=== PATIENT | female | born 2000 | race Caucasian/White ===

== ENCOUNTER 2024-09-21 06:34 | Emergency (ER) | payer OTHER, SELFPAY ==
[2024-09-21 06:45] VITALS: BP 172/109; PULSE 106; RESP 16; TEMP 37.1; O2SAT 98; BMI 34.0
--- NOTE | 2024-09-21 07:16 | ED_ITS ---
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 Patient presents with complaint of left hip pain radiating down towards her knee. Started last night while seated on the couch, no recollection of trauma. She states both the knee and hip part with movement. They noticed a little bit of swelling at the knee and possibly little bit at her hip. Patient does note that worse with weight-bearing. No fevers, no cold cough or congestion, no chest pain or shortness of breath, no some nausea this morning but patient states she started develop a little bit of a migraine headache. No abdominal pain. No issues with bowel movements or urination. She does note little bit of tingling in her left lower extremity which is atypical. States bilateral hip replacements in the past as well as surgery on both shoulders in the past. These were at [facility] with Orthopedic surgery there. No known drug allergies. No tobacco, occasional alcohol, no recreational drugs. Primary care physician is in [place] with Randell Glass. Patient does note she recently had an IUD placed which is hormonal. Related Data Home Medications Medication Instructions Recorded Confirmed celecoxib 200 mg capsule 200 mg PO BID 09/21/24 09/21/24 desmopressin 10 mcg/spray (0.1 mL) 1 spray intranasal Q6-8H 09/21/24 09/21/24 nasal spray (non-refrigerated) estradiol 1 mg tablet 1 mg PO DAILY 09/21/24 09/21/24 hydrocortisone 10 mg tablet See Rx Instructions .Route .COMPLEX 09/21/24 09/21/24 levothyroxine 75 mcg tablet 75 mcg PO DAILY 09/21/24 09/21/24 ondansetron 4 mg disintegrating 4 - 8 mg PO Q8H PRN nausea/vomiting 09/21/24 09/21/24 tablet syringe with needle 3 mL 21 gauge 09/21/24 09/21/24 x 1 1/2 (BD Luer-Perry Syringe) Previous Rx's Medication Instructions Recorded tramadol 50 mg tablet 50 mg PO Q6H PRN pain #10 tabs 09/21/24 Allergies Allergy/AdvReac Type Severity Reaction Status Date / Time No Known Drug Allergies Allergy Verified 09/21/24 06:41 Review of Systems Review of Systems ROS Unobtainable: All systems reviewed & are unremarkable except as noted in HPI and below Patient History Social History Smoking Status: Never smoker Smoking Status: Never smoker alcohol intake frequency: holidays/special occasions only Substance Use Type: does not use Exam Narrative Exam Narrative: GEN: well nourished, well appearing female, alert and oriented x 3, patient appears to be in mild distress. HEENT: Atraumatic, pupils are equal round reactive to light, extraocular movements are intact, nares are clear, there is no conjunctival pallor. Throat is clear without any exudates, erythema, tonsillar enlargement or uvular deviation HEART: Regular rate and rhythm without murmur, clicks, rubs. LUNGS:Lungs clear to auscultation, no wheezes, rales, crackles, chest moves symmetrically ABD:bowel sounds normal, soft, non-tender, no guarding, rebound, rigidity, no masses noted, no hepatosplenomegaly :No CVA tenderness MSCL: Non-tender to palpation of the hip or knee. Nontender with palpation through the thigh. No obvious erythema or warmth. Patient does have discomfort with movement with flexion of the hip and knee. But is able to flex and extend., no muscle atrophy, muscles strength 5/5 upper and lower extremities, full range of motion. NEURO:CN 2-12 intact, sensation normal, SKIN: Patient has some areas circled for swelling and erythema I do not noticed significant warmth or erythema. Left leg is slightly more swollen in comparison to the right. No significant localized area of increased pain with palpation. Initial Vital Signs Initial Vital Signs: Vital Signs Temperature 98.7 F 09/21/24 06:45 Pulse Rate 106 H 09/21/24 06:45 Respiratory Rate 16 09/21/24 06:45 Blood Pressure 172/109 H 09/21/24 06:45 Pulse Oximetry 98 09/21/24 06:45 Oxygen Delivery Method Room Air 09/21/24 06:45 Course Orders Ordered: Discontinued Medications Ketorolac Tromethamine (Ketorolac 30 Mg/Ml Vial) 15 mg IV NOW ONE Stop: 09/21/24 08:23 Last Admin: 09/21/24 08:57 Dose: 15 mg Documented By: [facility] Vital Signs Vital signs: Vital Signs - 8 hr 09/21/24 06:45 09/21/24 10:47 Temperature 98.7 F Pulse Rate 106 H 90 Respiratory Rate 16 20 Blood Pressure 172/109 H 143/94 H Pulse Oximetry 98 98 Oxygen Delivery Method Room Air Room Air MDM - Extremity (Nontraumatic) Lab Data 09/21/24 08:43 09/21/24 08:43 Labs: Lab Results 09/21/24 Range/Units 08:43 WBC 7.2 (4.5-11.0) X10^3/uL RBC 4.25 (4.0-5.2) X10^6/uL Hgb 12.8 (12.0-16.0) g/dL Hct 38.0 (36-46) % MCV 89.2 (80-100) fL MCH 30.0 (26-34) PG MCHC 33.6 (30-36) % RDW 13.1 (11.6-14.8) % Plt Count 235 (150-400) X10^3/uL Neut % (Auto) 48.4 L (50-75) % Lymph % (Auto) 40.4 H (25-40) % [place] % (Auto) 6.6 (3-14) % Eos % (Auto) 4.0 (2-4) % Baso % (Auto) 0.6 (0-2) % Neut # (Auto) 3500 (3810-1571) /uL Lymph # (Auto) 2900 (4672-4931) /uL [place] # (Auto) 500 (0-900) /uL Eos # (Auto) 300 (0-450) /uL Baso # (Auto) 0 (0-100) /uL ESR 28 H (0-20) MM/HR Sodium 140 (137-145) mmol/L Potassium 3.6 (3.4-5.1) mmol/L Chloride 108 H (98-107) mmol/L Carbon Dioxide 24 (22-32) mmol/L BUN 17 (7-17) mg/dL Creatinine 0.55 (0.52-1.04) mg/dL Estimated GFR > 60 (>60) mL/min BUN/Creatinine Ratio 30.9 H (6-22) Glucose 108 H (70-100) mg/dL Calcium 9.0 (8.4-10.2) mg/dL C-Reactive Protein 0.7 (<1.0) mg/dL MDM Narrative Medical decision making narrative: X-ray imaging of patient's left notes hip pain to the knee worse with weight- bearing she has good range of motion with no discrete bony tenderness. They note some swelling and patient's left leg does feel little bit tighter than the right but circumference appears fairly equal. Patient has some areas circled with possible erythema although not as appreciable to myself. Labs including CBC showed predominance of lymphocytes but low neutrophil percentage with a white count of 7.2 ESR was elevated at 28 no priors for comparison. CRP is normal, glucose is 108 creatinine and electrolytes are otherwise appropriate except for chloride of 108. Blood culture was sent. Hip x-ray shows expected appearance total left hip arthroplasty no evidence of acute bony abnormality, no evidence of hardware failure or loosening. Knee x-ray shows no acute change or effusion. DVT ultrasound as patient does have recent IUD placed, states it was hormonal IUD. Patient received Toradol. Had some mild improvement. Reviewed patient's findings, she has been able to ambulate although uncomfortable, no clear signs of infection did review her ESR was elevated but white count. Discussed findings with patient would like for her to follow up with her orthopedic team but discharged home we will give a short course of pain medication that she can take with her normal Celebrex and Tylenol. Discharge Plan Departure Patient Disposition: Home Clinical Impression: Left leg pain Activity Restrictions/Additional Instructions: Please call to follow up with your orthopedic team. Your labs and imaging including xray and DVT ultrasound today which did not show any clear cause, there are 2 blood cultures pending. You can take tramadol 1-2 tablets every 6 hours as needed. You can take this with your Celebrex as well as acetaminophen. Prescription was sent to [facility] in [place]. Please return for fevers, if you have increasing swelling, redness or skin changes, rapidly worsening pain, any nausea or vomiting, new or increasing numbness, weakness or tingling, difficulty with movement or lifting your leg ambulating or other new or concerning changes. Prescriptions: New tramadol 50 mg tablet 50 mg PO Q6H PRN (Reason: pain) Qty: 10 0RF No Action desmopressin 10 mcg/spray (0.1 mL) spray with pump 1 spray intranasal Q6-8H levothyroxine 75 mcg tablet 75 mcg PO DAILY estradiol 1 mg tablet 1 mg PO DAILY hydrocortisone 10 mg tablet See Rx Instructions .ROUTE .COMPLEX Rx Instructions: Take 2 tablets by mouth every morning and 1 tablet every afternoon ondansetron 4 mg tablet,disintegrating 4 - 8 mg PO Q8H PRN (Reason: nausea/vomiting) (DME) syringe with needle [BD Luer-Perry Syringe] 3 mL 21 gauge x 1 1/2 syringe 1 syringe MISCELLANEOUS celecoxib 200 mg capsule 200 mg PO BID Stand Alone Forms: Patient Portal/API/Survey, Work Release Note
--- NOTE | 2024-09-21 07:41 | DI.RAD.S_ITS ---
PROCEDURE: XR HIP W PEL IF DONE LT 2V INDICATIONS: Left hip pain, hx AVN TECHNIQUE: AP pelvis with lateral view(s) of the left hip(s). COMPARISON: None. FINDINGS: Bones: Expected appearance of total left hip arthroplasty. No evidence of hardware failure or loosening. Lower lumbar fusion hardware. No fractures or dislocations. Pelvic ring appears intact. No suspicious bony lesions. Soft tissues: The visualized bowel gas pattern is normal. No suspicious soft tissue calcifications. IMPRESSION: Expected appearance of total left hip arthroplasty. No evidence acute bony abnormality. Dictated by: Justice Lee M.D. on 09/21/2024 at 8:38 Approved by: Justice Lee M.D. on 09/21/2024 at 8:39
--- NOTE | 2024-09-21 08:23 | DI.US.S_ITS ---
PROCEDURE: US PERIPH VENOUS LOW EXTREM LT INDICATIONS: left hip to knee pain, feels swollen TECHNIQUE: Real-time imaging, as well as color and pulse Doppler interrogation, were performed of the lower extremity deep veins from the inguinal ligament to the popliteal fossa, with documentation of the visualized calf veins. COMPARISON: None. FINDINGS: The common femoral, femoral, popliteal, and the visualized calf veins are normally compressible, and free of intraluminal thrombus. Color and pulse Doppler demonstrate normal phasic intraluminal flow. There is normal augmentation response to distal compression maneuver. IMPRESSION: Negative right lower extremity duplex venous ultrasound for DVT. Dictated by: Justice Lee M.D. on 09/21/2024 at 9:26 Approved by: Justice Lee M.D. on 09/21/2024 at 9:28
[2024-09-21 08:51] LABS: Add Manual Diff / Slide Review NO; Basophils Absolute Auto 0 /uL (0-100); Basophils Percent Auto 0.6 % (0-2); Eosinophils Absolute Auto 300 /uL (0-450); Hemoglobin 12.8 g/dL (12.0-16.0); Lymphocytes Absolute Auto 2900 /uL (1100-4500); Lymphocytes Percent Auto 40.4 % (25-40); Mean Corpuscular HGB Conc 33.6 % (30-36); Mean Corpuscular Volume 89.2 fL (80-100); Monocytes Absolute Auto 500 /uL (0-900); Monocytes Percent Auto 6.6 % (3-14); Neutrophils Absolute Auto 3500 /uL (1500-7000); Neutrophils Percent Auto 48.4 % (50-75); Platelet Count 235 X10^3/uL (150-400); Red Blood Cell Count 4.25 X10^6/uL (4.0-5.2); Red Cell Distribution Width 13.1 % (11.6-14.8); White Blood Cell Count 7.2 X10^3/uL (4.5-11.0)
[2024-09-21] MEDS: KETOROLAC 30 MG/ML VIAL 15 MG IV (08:57)
[2024-09-21 09:09] LABS: BUN Creatinine Ratio 30.9 (6-22); Blood Urea Nitrogen 17 mg/dL (7-17); C-Reactive Protein Quant 0.7 mg/dL (<1.0); Carbon Dioxide 24 mmol/L (22-32); Chloride 108 mmol/L (98-107); Estimated Glomerular Filt Rate > 60 mL/min (>60); Glucose 108 mg/dL (70-100); HEMOLYSIS 25 (0-50); Potassium 3.6 mmol/L (3.4-5.1); Sodium 140 mmol/L (137-145)
[2024-09-21 09:36] LABS: Erythrocyte Sedimentation Rate 28 MM/HR (0-20)
--- NOTE | 2024-09-21 10:04 | DI.RAD.S_ITS ---
PROCEDURE: XR KNEE LT 3V INDICATIONS: knee/hip pain, nontender to palp, hx avn in hips/shoulders TECHNIQUE: 3 views of the knee were acquired. COMPARISON: None. FINDINGS: Bones: No fractures or dislocations. No suspicious bony lesions. Soft tissues: No joint effusion. No suspicious soft tissue calcifications. IMPRESSION: No acute bony abnormality or significant effusion. Dictated by: Flako Marina M.D. on 09/21/2024 at 10:39 Approved by: Flako Marina M.D. on 09/21/2024 at 10:39
[2024-09-21 10:47] VITALS: BP 143/94; PULSE 90; RESP 20; O2SAT 98
== END 2024-09-21 11:10 | disposition home or self-care (01) ==
PROVIDERS: Emergency Provider Emergency Medicine
DX: M79.605 Pain in left leg (principal); Z96.643 Presence of artificial hip joint, bilateral
CPT/HCPCS: 36415; 73502; 73562; 80048; 85025; 85651; 86140; 87040; 93971; 96374; 99284; J1885

== ENCOUNTER 2024-10-08 13:14 | Emergency (ER) | payer OTHER, SELFPAY ==
[2024-10-08 13:17] VITALS: BP 156/98; PULSE 98; RESP 16; TEMP 36.9; O2SAT 98; BMI 34.0
--- NOTE | 2024-10-08 14:20 | ED.FEMALEGU ---
HPI - Female Genitourinary <Mely Crabtree PA-C - Last Filed: 10/08/24 19:20> General Chief complaint: Urogenital-Female Stated complaint: heavy bleeding after IUD t-2mo Time Seen by Provider: 10/08/24 14:20 Source: patient Mode of arrival: Ambulatory History of Present Illness HPI Narrative: Ms. 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 Due to patient's history of requiring progesterone supplementation, she had a Mirena IUD placed in the beginning of August at . Reports that she has had intermittent heavy bleeding ever since the IUD has been placed. Bleeding and cramping has been increasing recently. Two days ago she noticed a very foul-smelling odor coming from her vaginal bleeding and generalized fatigue and chills. Reports she has to change a tampon or pad every hour. She is sexually active with her and has mild discomfort during intercourse. She denies cough, congestion, chest pain, shortness of breath, diarrhea, constipation, dysuria, melena, hematochezia. She took Celebrex this morning at 8:00 a.m. without relief. Related Data Home Medications Medication Instructions Recorded Confirmed celecoxib 200 mg capsule 200 mg PO BID 09/21/24 09/21/24 desmopressin 10 mcg/spray (0.1 mL) 1 spray intranasal Q6-8H 09/21/24 09/21/24 nasal spray (non-refrigerated) estradiol 1 mg tablet 1 mg PO DAILY 09/21/24 09/21/24 hydrocortisone 10 mg tablet See Rx Instructions .Route .COMPLEX 09/21/24 09/21/24 levothyroxine 75 mcg tablet 75 mcg PO DAILY 09/21/24 09/21/24 ondansetron 4 mg disintegrating 4 - 8 mg PO Q8H PRN nausea/vomiting 09/21/24 09/21/24 tablet syringe with needle 3 mL 21 gauge 09/21/24 09/21/24 x 1 1/2 (BD Luer-Perry Syringe) Previous Rx's Medication Instructions Recorded tramadol 50 mg tablet 50 mg PO Q6H PRN pain #10 tabs 09/21/24 doxycycline hyclate 100 mg capsule 100 mg PO BID 14 days #28 caps 10/08/24 metronidazole 500 mg tablet 500 mg PO BID 14 days #28 tabs 10/08/24 Allergies Allergy/AdvReac Type Severity Reaction Status Date / Time No Known Drug Allergies Allergy Verified 09/21/24 06:41 Review of Systems <Mely Crabtree PA-C - Last Filed: 10/08/24 19:20> Review of Systems ROS Unobtainable: All systems reviewed & are unremarkable except as noted in HPI and below Patient History <Mely Crabtree PA-C - Last Filed: 10/08/24 19:20> alcohol intake frequency: holidays/special occasions only Substance Use Type: does not use Exam <Mely Crabtree PA-C - Last Filed: 10/08/24 19:20> Narrative Exam Narrative: GENERAL: 24 year old patient appears stated age. Well-developed patient, in no acute distress. HEAD: Atraumatic. Normocephalic. EYES: Extraocular motions intact. No scleral icterus. No injection or drainage. ENT: Nose without bleeding, purulent drainage. Throat without erythema, tonsillar hypertrophy or exudate. Airway patent. NECK: Trachea midline. Cervical ROM intact. CARDIOVASCULAR: Regular rate and rhythm. RESPIRATORY: ?Nonlabored respirations. ?Speaking in clear, full sentences. ?Clear to auscultation. Breath sounds equal bilaterally. No wheezes, rales, or rhonchi. ? GASTROINTESTINAL: Abdomen soft, mild TTP BL lower abdomen, L>R, nondistended. EXTREMITIES: No edema or joint tenderness. BACK: Nontender without deformity or crepitance. No flank tenderness. NEURO: AOx3. ?Clear speech. ?Moves all 4 extremities appropriately. SKIN: No rash or erythema of visible areas Initial Vital Signs Initial Vital Signs: Vital Signs Temperature 98.5 F 10/08/24 13:17 Pulse Rate 98 H 10/08/24 13:17 Respiratory Rate 16 10/08/24 13:17 Blood Pressure 156/98 H 10/08/24 13:17 Pulse Oximetry 98 10/08/24 13:17 Oxygen Delivery Method Room Air 10/08/24 13:17 <Marcela Howell MD - Last Filed: 10/09/24 08:25> Initial Vital Signs Initial Vital Signs: Vital Signs Temperature 98.5 F 10/08/24 13:17 Pulse Rate 98 H 10/08/24 13:17 Respiratory Rate 16 10/08/24 13:17 Blood Pressure 156/98 H 10/08/24 13:17 Pulse Oximetry 98 10/08/24 13:17 Oxygen Delivery Method Room Air 10/08/24 13:17 Course <Mely Crabtree PA-C - Last Filed: 10/08/24 19:20> Orders Ordered: Discontinued Medications Diphenhydramine HCl (Diphenhydramine 50 Mg/Ml Vial) 25 mg IV NOW ONE Stop: 10/08/24 16:12 Last Admin: 10/08/24 16:37 Dose: 25 mg Documented By: LIZETH Doxycycline Hyclate (Doxycycline Hyclate 100 Mg Tablet) 100 mg PO NOW ONE Stop: 10/08/24 17:47 Last Admin: 10/08/24 17:56 Dose: 100 mg Documented By: LIZETH Sodium Chloride (Normal Saline 0.9%) 1,000 mls @ 1,000 mls/hr IV BOLUS ONE Stop: 10/08/24 15:39 Last Infusion: 10/08/24 18:50 Dose: Infused Documented By: Admin: 10/08/24 15:43 Dose: 1,000 mls/hr Documented By: LIZETH Ceftriaxone Sodium 1,000 mg/ (Sodium Chloride) 100 mls @ 200 mls/hr IV NOW ONE Stop: 10/08/24 17:47 Last Infusion: 10/08/24 18:40 Dose: Infused Documented By: Admin: 10/08/24 17:54 Dose: 200 mls/hr Documented By: LIZETH Ketorolac Tromethamine (Ketorolac 30 Mg/Ml Vial) 15 mg IV NOW ONE Stop: 10/08/24 14:41 Last Admin: 10/08/24 15:43 Dose: 15 mg Documented By: LIZETH Metronidazole (Metronidazole 500 Mg Tablet) 500 mg PO NOW ONE Stop: 10/08/24 17:47 Last Admin: 10/08/24 18:02 Dose: 500 mg Documented By: LIZETH Morphine Sulfate (Morphine 4 Mg/Ml Inj) 4 mg IV NOW ONE Stop: 10/08/24 17:47 Last Admin: 10/08/24 17:58 Dose: 4 mg Documented By: LIZETH Ondansetron HCl (Ondansetron 4 Mg/2 Ml Inj) 4 mg IV NOW ONE Stop: 10/08/24 16:12 Last Admin: 10/08/24 16:37 Dose: 4 mg Documented By: LIZETH Consultations Consultation #1: Consulted OBGYN on-call Dr. Fermin. Discussed the patient's clinical scenario in addition to her imaging findings of PID. We will proceed with treatment of PID with 1 g of IV Rocephin, doxycycline 100 mg 2 times a day for 14 days and metronidazole 500 mg 2 times a day for 14 days. At this time she states the IUD does not need to be removed but that the patient should be aware it may need to be removed. The patient needs to follow up either tomorrow or on Saturday. And she needs strict ER return precautions. Time: 17:38 Vital Signs Vital signs: Vital Signs - 8 hr 10/08/24 13:17 10/08/24 19:04 Temperature 98.5 F Pulse Rate 98 H 86 Respiratory Rate 16 18 Blood Pressure 156/98 H 150/95 H Pulse Oximetry 98 100 Oxygen Delivery Method Room Air <Marcela Howell MD - Last Filed: 10/09/24 08:25> Orders Ordered: Discontinued Medications Diphenhydramine HCl (Diphenhydramine 50 Mg/Ml Vial) 25 mg IV NOW ONE Stop: 10/08/24 16:12 Last Admin: 10/08/24 16:37 Dose: 25 mg Documented By: LIZETH Doxycycline Hyclate (Doxycycline Hyclate 100 Mg Tablet) 100 mg PO NOW ONE Stop: 10/08/24 17:47 Last Admin: 10/08/24 17:56 Dose: 100 mg Documented By: LIZETH Sodium Chloride (Normal Saline 0.9%) 1,000 mls @ 1,000 mls/hr IV BOLUS ONE Stop: 10/08/24 15:39 Last Infusion: 10/08/24 18:50 Dose: Infused Documented By: Admin: 10/08/24 15:43 Dose: 1,000 mls/hr Documented By: LIZETH Ceftriaxone Sodium 1,000 mg/ (Sodium Chloride) 100 mls @ 200 mls/hr IV NOW ONE Stop: 10/08/24 17:47 Last Infusion: 10/08/24 18:40 Dose: Infused Documented By: Admin: 10/08/24 17:54 Dose: 200 mls/hr Documented By: LIZETH Ketorolac Tromethamine (Ketorolac 30 Mg/Ml Vial) 15 mg IV NOW ONE Stop: 10/08/24 14:41 Last Admin: 10/08/24 15:43 Dose: 15 mg Documented By: LIZETH Metronidazole (Metronidazole 500 Mg Tablet) 500 mg PO NOW ONE Stop: 10/08/24 17:47 Last Admin: 10/08/24 18:02 Dose: 500 mg Documented By: LIZETH Morphine Sulfate (Morphine 4 Mg/Ml Inj) 4 mg IV NOW ONE Stop: 10/08/24 17:47 Last Admin: 10/08/24 17:58 Dose: 4 mg Documented By: LIZETH Ondansetron HCl (Ondansetron 4 Mg/2 Ml Inj) 4 mg IV NOW ONE Stop: 10/08/24 16:12 Last Admin: 10/08/24 16:37 Dose: 4 mg Documented By: LIZETH Vital Signs Vital signs: Vital Signs - 8 hr 10/08/24 13:17 10/08/24 19:04 Temperature 98.5 F Pulse Rate 98 H 86 Respiratory Rate 16 18 Blood Pressure 156/98 H 150/95 H Pulse Oximetry 98 100 Oxygen Delivery Method Room Air MDM - Female Genitourinary <Mely Crabtree PA-C - Last Filed: 10/08/24 19:20> Lab Data 10/08/24 14:53 10/08/24 14:53 Labs: Lab Results 10/08/24 10/08/24 Range/Units 14:35 14:53 WBC 8.6 (4.5-11.0) X10^3/uL RBC 4.45 (4.0-5.2) X10^6/uL Hgb 13.1 (12.0-16.0) g/dL Hct 39.4 (36-46) % MCV 88.6 (80-100) fL MCH 29.5 (26-34) PG MCHC 33.3 (30-36) % RDW 12.8 (11.6-14.8) % Plt Count 267 (150-400) X10^3/uL Neut % (Auto) 73.9 (50-75) % Lymph % (Auto) 19.2 L (25-40) % [place] % (Auto) 4.9 (3-14) % Eos % (Auto) 1.6 L (2-4) % Baso % (Auto) 0.4 (0-2) % Neut # (Auto) 6400 (5724-4385) /uL Lymph # (Auto) 1700 (5800-5196) /uL [place] # (Auto) 400 (0-900) /uL Eos # (Auto) 100 (0-450) /uL Baso # (Auto) 0 (0-100) /uL Sodium 139 (137-145) mmol/L Potassium 4.1 (3.4-5.1) mmol/L Chloride 106 (98-107) mmol/L Carbon Dioxide 23 (22-32) mmol/L BUN 12 (7-17) mg/dL Creatinine 0.63 (0.52-1.04) mg/dL Estimated GFR > 60 (>60) mL/min BUN/Creatinine Ratio 19.0 (6-22) Glucose 116 H (70-100) mg/dL Calcium 10.1 (8.4-10.2) mg/dL Total Bilirubin 0.4 (0.2-1.3) mg/dL AST 101 H (14-36) IU/L ALT 110 H (<35) IU/L Alkaline Phosphatase 77 (38-126) U/L Total Protein 7.9 (6.3-8.2) g/dL Albumin 4.7 (3.5-5.0) g/dL Globulin 3.2 (1.7-4.1) g/dL Albumin/Globulin Ratio 1.5 (1.0-2.8) Lipase 55 (23-300) U/L Urine RBC 1-5/hpf (0-5/HPF) Urine WBC 0-1/hpf (0-5/HPF) Ur Squamous Epith Cells 0-1 /hpf (0-5/HPF) Urine Bacteria None seen (None) Ur Culture Indicated? Cult not indicated Vol Urine Centrifuged 10ml (spun) Point of Care Testing Test Results Negative MDM Narrative Medical decision making narrative: Medically complex 24-year-old female with a past medical history of craniopharyngioma s/p removal resulting in avascular necrosis of all major joints, hypopituitarism, diabetes insipidus presents to the emergency department for prolonged bleeding and pain after IUD placement the beginning of August and feeling unwell with malodorous discharge x2 days. Differential diagnosis includes but is not limited to pelvic inflammatory disease, tubo-ovarian abscess, endometritis, anemia, UTI, etc. On exam patient is nontoxic appearing, no acute distress, afebrile. She does have mild discomfort to palpation of the lower abdomen worse on the left side. We will obtain pelvic ultrasound, abdominal labs, pelvic exam with swabs, urinalysis. We will treat with fluids and Toradol after negative hCG. Pelvic exam reveals blood and purulent discharge in the vaginal vault. Mild bimanual tenderness to palpation of the left side. Exam concerning for PID. Ultrasound reveals IUD appears appropriately positioned within the central endometrium. There are significant blood products within the endometrium. Unfortunately the left ovary is not visualized due to overlying bowel gas. After shared decision-making with the patient, we will proceed with CT with IV contrast for further evaluation of left lower quadrant given this is where the patient's pain is located. CT reveals fat stranding between the uterus and bladder with mild bladder wall thickening. Findings may indicate pelvic inflammatory disease. In addition patient has moderate hepatic steatosis and elevated liver enzymes which she is already aware of. Remainder of labs are reassuring with normal WBC count of 8.6, no anemia, normal electrolytes, no UTI. Discussed the case with OBGYN on-call. Given patient's reassuring vital signs and lab work, we will treat as outpatient for pelvic inflammatory disease with 1 g of IV Rocephin, 100 mg doxycycline b.i.d. times 14 days and 500 mg metronidazole b.i.d. times 14 days. Patient is very reliable and will follow up with her PCP or OBGYN tomorrow or Saturday for repeat evaluation. Very strict ER return precautions were discussed. She has Zofran at home if needed for nausea. All of the patient's questions were answered, she has a family member here to drive her home, and she is stable for discharge. She was provided with printed copies of all of her imaging. <Marcela Howell MD - Last Filed: 10/09/24 08:25> Lab Data Labs: Lab Results 10/08/24 10/08/24 Range/Units 14:35 14:53 WBC 8.6 (4.5-11.0) X10^3/uL RBC 4.45 (4.0-5.2) X10^6/uL Hgb 13.1 (12.0-16.0) g/dL Hct 39.4 (36-46) % MCV 88.6 (80-100) fL MCH 29.5 (26-34) PG MCHC 33.3 (30-36) % RDW 12.8 (11.6-14.8) % Plt Count 267 (150-400) X10^3/uL Neut % (Auto) 73.9 (50-75) % Lymph % (Auto) 19.2 L (25-40) % [place] % (Auto) 4.9 (3-14) % Eos % (Auto) 1.6 L (2-4) % Baso % (Auto) 0.4 (0-2) % Neut # (Auto) 6400 (6412-8204) /uL Lymph # (Auto) 1700 (2309-9449) /uL [place] # (Auto) 400 (0-900) /uL Eos # (Auto) 100 (0-450) /uL Baso # (Auto) 0 (0-100) /uL Sodium 139 (137-145) mmol/L Potassium 4.1 (3.4-5.1) mmol/L Chloride 106 (98-107) mmol/L Carbon Dioxide 23 (22-32) mmol/L BUN 12 (7-17) mg/dL Creatinine 0.63 (0.52-1.04) mg/dL Estimated GFR > 60 (>60) mL/min BUN/Creatinine Ratio 19.0 (6-22) Glucose 116 H (70-100) mg/dL Calcium 10.1 (8.4-10.2) mg/dL Total Bilirubin 0.4 (0.2-1.3) mg/dL AST 101 H (14-36) IU/L ALT 110 H (<35) IU/L Alkaline Phosphatase 77 (38-126) U/L Total Protein 7.9 (6.3-8.2) g/dL Albumin 4.7 (3.5-5.0) g/dL Globulin 3.2 (1.7-4.1) g/dL Albumin/Globulin Ratio 1.5 (1.0-2.8) Lipase 55 (23-300) U/L Urine RBC 1-5/hpf (0-5/HPF) Urine WBC 0-1/hpf (0-5/HPF) Ur Squamous Epith Cells 0-1 /hpf (0-5/HPF) Urine Bacteria None seen (None) Ur Culture Indicated? Cult not indicated Vol Urine Centrifuged 10ml (spun) Point of Care Testing Test Results Negative Discharge Plan Departure Patient Disposition: Home Clinical Impression: Acute pelvic inflammatory disease (PID) Instructions: DI for Pelvic Inflammatory Disease (PID) Activity Restrictions/Additional Instructions: Today you were diagnosed with pelvic inflammatory disease. This condition is treated with 3 antibiotics. You already received the 1st IV antibiotic, however you will need to complete the full course of the additional 2 antibiotics for 2 weeks. Your lab work did reveal elevated liver enzymes. Otherwise, your labs were reassuring. Please follow up with the primary care doctor or your OBGYN within the next 1-2 days for repeat evaluation. If you develop fevers, worsening pain, or inability to keep down her antibiotics, you will need to return to the ER immediately. It is important to have an appointment with your OBGYN scheduled to discuss your IUD and if it needs to be removed. For the time being, please stop taking the Celebrex and starts taking ibuprofen and Tylenol. Please eat something when taking these medications and when taking your antibiotics. Remain upright for at least 1 hour after taking your antibiotics. Do not drink alcohol while on any of these medications. Please take Ibuprofen (Motrin/Advil) or Acetaminophen (Tylenol) for pain. These are available over the counter. You may take Ibuprofen 600 mg every 8 hours with food for pain. You may also take Acetaminophen 650 mg every 4-6 hours for pain. Do not exceed 3000 mg of Tylenol a day as this can cause liver damage. Do not drink alcohol with either of these medications. Please follow up with your primary care doctor within the next 2-3 days for ER follow-up. IF YOU DEVELOP ANY NEW OR WORSENING SYMPTOMS, RETURN TO THE ER! Please read the attached instructions, they highlight more specific treatments and interventions for you at home. Thank you for letting me participate in your care, Mely Crabtree PA-C Prescriptions: New doxycycline hyclate 100 mg capsule 100 mg PO BID 14 Days Qty: 28 0RF metronidazole 500 mg tablet 500 mg PO BID 14 Days Qty: 28 0RF No Action desmopressin 10 mcg/spray (0.1 mL) spray with pump 1 spray intranasal Q6-8H levothyroxine 75 mcg tablet 75 mcg PO DAILY estradiol 1 mg tablet 1 mg PO DAILY hydrocortisone 10 mg tablet See Rx Instructions .ROUTE .COMPLEX Rx Instructions: Take 2 tablets by mouth every morning and 1 tablet every afternoon ondansetron 4 mg tablet,disintegrating 4 - 8 mg PO Q8H PRN (Reason: nausea/vomiting) (DME) syringe with needle [BD Luer-Perry Syringe] 3 mL 21 gauge x 1 1/2 syringe 1 syringe MISCELLANEOUS celecoxib 200 mg capsule 200 mg PO BID tramadol 50 mg tablet 50 mg PO Q6H PRN (Reason: pain) Qty: 10 0RF Stand Alone Forms: Patient Portal/API/Survey ED Sign-out <Marcela Howell MD - Last Filed: 10/09/24 08:25> Cosign ED Attending Cosignature Attestation: I was immediately available in the department for consultation throughout this patient's visit. Marcela Howell MD
--- NOTE | 2024-10-08 14:40 | DI.US.S_ITS ---
PROCEDURE: US PELVIC COMPLETE INDICATIONS: PAIN, BLEEDING POST IUD PLACEMENT TECHNIQUE: Real-time scanning was performed of the pelvic organs, with image documentation. Additional endovaginal scanning was necessary due to incomplete visualization of the adnexal and endometrial structures by transabdominal scanning. COMPARISON: None. FINDINGS: Uterus: Uterus is anteverted and normal in size at 9.2 x 4.9 x 5.9 cm. The myometrium is homogeneous. The endometrium measures 15 mm combined thickness. There is mobile debris within the endometrium, presumably blood products. IUD within the endometrium. Ovaries: The right ovary measures 2.5 x 2.8 x 1.4 cm, with a calculated ovarian volume of 5 cc. Left ovary not visualized due to overlying bowel gas. No adnexal mass. Other: No pathologic free abdominal or pelvic fluid. IMPRESSION: IUD appears appropriately positioned within the central endometrium. There are significant blood products within the endometrium. We strive to produce accurate, complete, and clear reports of imaging services. To assist us in improving patient care, this report was composed using standard report templates and voice recognition software. Therefore, it may contain abnormal punctuation, insertions and/or omissions. Occasional wrong-word or sound-alike substitutions may occur. Though we review the report and make efforts to correct it, we do recommend that the report be read carefully in proper context to recognize any text inaccuracies. Dictated by: Flako Marina M.D. on 10/08/2024 at 15:46 Approved by: Flako Marina M.D. on 10/08/2024 at 15:47
[2024-10-08 15:03] LABS: Bacteria Urine None Seen; Culture Indicated Urine Cult Not Indicated; RBC Urine 1-5/HPF (0-5/HPF); Squamous Epithelial Cell Urine 0-1 /HPF (0-5/HPF); Urine Volume 10mL (spun); WBC Urine 0-1/HPF (0-5/HPF)
[2024-10-08 15:07] LABS: Add Manual Diff / Slide Review NO; Basophils Absolute Auto 0 /uL (0-100); Basophils Percent Auto 0.4 % (0-2); Eosinophils Absolute Auto 100 /uL (0-450); Eosinophils Percent Auto 1.6 % (2-4); Hematocrit 39.4 % (36-46); Hemoglobin 13.1 g/dL (12.0-16.0); Lymphocytes Absolute Auto 1700 /uL (1100-4500); Lymphocytes Percent Auto 19.2 % (25-40); Mean Corpuscular HGB Conc 33.3 % (30-36); Mean Corpuscular Hemoglobin 29.5 PG (26-34); Mean Corpuscular Volume 88.6 fL (80-100); Monocytes Absolute Auto 400 /uL (0-900); Monocytes Percent Auto 4.9 % (3-14); Neutrophils Absolute Auto 6400 /uL (1500-7000); Neutrophils Percent Auto 73.9 % (50-75); Platelet Count 267 X10^3/uL (150-400); Red Blood Cell Count 4.45 X10^6/uL (4.0-5.2); Red Cell Distribution Width 12.8 % (11.6-14.8); White Blood Cell Count 8.6 X10^3/uL (4.5-11.0)
[2024-10-08 15:22] LABS: Alanine Aminotransferase 110 IU/L (<35); Albumin 4.7 g/dL (3.5-5.0); Albumin Globulin Ratio 1.5 (1.0-2.8); Alkaline Phosphatase 77 U/L (38-126); Aspartate Aminotransferase 101 IU/L (14-36); Bilirubin Total 0.4 mg/dL (0.2-1.3); Blood Urea Nitrogen 12 mg/dL (7-17); Calcium 10.1 mg/dL (8.4-10.2); Carbon Dioxide 23 mmol/L (22-32); Chloride 106 mmol/L (98-107); Estimated Glomerular Filt Rate > 60 mL/min (>60); Globulin 3.2 g/dL (1.7-4.1); Glucose 116 mg/dL (70-100); HEMOLYSIS < 15 (0-50); Lipase 55 U/L (23-300); Potassium 4.1 mmol/L (3.4-5.1); Sodium 139 mmol/L (137-145); Total Protein 7.9 g/dL (6.3-8.2)
[2024-10-08] MEDS: KETOROLAC 30 MG/ML VIAL 15 MG IV (15:43)
[2024-10-08] MEDS: SODIUM CHLORIDE 0.9% 1,000 ML 1000 ML IV (15:43)
[2024-10-08] MEDS: ONDANSETRON 4 MG/2 ML INJ IV (16:37)
[2024-10-08] MEDS: diphenhydrAMINE 50 MG/ML VIAL 25 MG IV (16:37)
--- NOTE | 2024-10-08 16:39 | DI.CT.S_ITS ---
PROCEDURE: CT ABDOMEN PELVIS W CON INDICATIONS: LLQ abdominal pain; IUD; concern for PID;L ovary not on US TECHNIQUE: After the administration of intravenous contrast, axial sections acquired from the lung bases to the pubic symphysis. Coronal and sagittal reformats were performed. For radiation dose reduction, the following was used: automated exposure control, adjustment of mA and/or kV according to patient size. COMPARISON: None. FINDINGS: Image quality: Diagnostic. Lower Chest: No significant findings. ABDOMEN: Liver: No solid mass. Moderate to severe hepatic steatosis. Gallbladder: No radiopaque gallstones or wall thickening. Biliary ducts: No biliary dilation. Pancreas: No ductal dilation. Spleen: Size is within normal limits. Adrenal Glands: No adrenal nodules. Kidneys and Ureters: No hydronephrosis. No solid mass. No complex renal cystic lesion which requires follow up. Stomach and Bowel: Normal colonic caliber, without significant wall thickening. No significant diverticular disease. Normal appendix. Peritoneum: No abnormal intraperitoneal fluid. No free air. Ventral Wall: No significant ventral hernia. Small umbilical hernia containing fat. Abdominal Nodes: No retroperitoneal or mesenteric adenopathy by size criteria. Vessels: Aorta and inferior vena cava are normal in size. PELVIS: Pelvic Organs: IUD within the endometrium. There is fat stranding between the uterus and bladder (series 8, image 66). Bladder: Mild bladder wall thickening. Pelvic Nodes: No enlarged lymph nodes. Miscellaneous: No inguinal hernias are seen. Bones: No aggressive osseous abnormality. IMPRESSION: Fat stranding between the uterus and bladder, with mild bladder wall thickening. Findings may indicate pelvic inflammatory disease, less likely cystitis. At least moderate hepatic steatosis. Correlate with elevated liver enzymes, as findings could indicate steatohepatitis. Dictated by: Flako Marina M.D. on 10/08/2024 at 17:10 Approved by: Flako Marina M.D. on 10/08/2024 at 17:13
[2024-10-08] MEDS: cefTRIAXone 1,000 MG in SODIUM CHLORIDE 0.9% 100 ML 200 MG IV (17:54)
[2024-10-08] MEDS: DOXYCYCLINE HYCLATE 100 MG TABLET PO (17:56)
[2024-10-08] MEDS: MORPHINE 4 MG/ML INJ IV (17:58)
[2024-10-08] MEDS: metroNIDAZOLE 500 MG TABLET PO (18:02)
[2024-10-08 19:04] VITALS: BP 150/95; PULSE 86; RESP 18; O2SAT 100
== END 2024-10-08 19:07 | disposition home or self-care (01) ==
PROVIDERS: Emergency Provider Physician Assistant
DX: N73.0 Acute parametritis and pelvic cellulitis (principal); N93.9 Abnormal uterine and vaginal bleeding, unspecified; Z97.5 Presence of (intrauterine) contraceptive device
CPT/HCPCS: 74177; 76856; 80053; 81015; 81025; 83690; 85025; 87070; 87077; 87186; 87205; 87210; 87491; 87563; 87591; 96361; 96365; 96375; 99284; J0696; J1200; J1885; J2270; J2405; Q9967

== ENCOUNTER 2024-10-11 11:04 | Emergency (ER) | payer OTHER, SELFPAY ==
[2024-10-11] VITALS (14 sets, daily range): BP systolic 133–161; BP diastolic 84–115; PULSE 79–101; RESP 11–23; TEMP 36.5–36.6; O2SAT 96–100; BMI 34.0
[2024-10-11 11:56] LABS: Add Manual Diff / Slide Review NO; BUN Creatinine Ratio 22.1 (6-22); Basophils Absolute Auto 100 /uL (0-100); Basophils Percent Auto 0.5 % (0-2); Blood Urea Nitrogen 17 mg/dL (7-17); Calcium 9.5 mg/dL (8.4-10.2); Carbon Dioxide 26 mmol/L (22-32); Chloride 103 mmol/L (98-107); Eosinophils Absolute Auto 300 /uL (0-450); Estimated Glomerular Filt Rate > 60 mL/min (>60); Glucose 91 mg/dL (70-100); HEMOLYSIS < 15 (0-50); Hematocrit 38.7 % (36-46); Lymphocytes Absolute Auto 3300 /uL (1100-4500); Lymphocytes Percent Auto 31.2 % (25-40); Mean Corpuscular HGB Conc 33.7 % (30-36); Mean Corpuscular Hemoglobin 29.8 PG (26-34); Mean Corpuscular Volume 88.4 fL (80-100); Monocytes Absolute Auto 500 /uL (0-900); Monocytes Percent Auto 4.9 % (3-14); Neutrophils Absolute Auto 6500 /uL (1500-7000); Neutrophils Percent Auto 60.4 % (50-75); Platelet Count 256 X10^3/uL (150-400); Potassium 3.5 mmol/L (3.4-5.1); Red Blood Cell Count 4.37 X10^6/uL (4.0-5.2); Sodium 138 mmol/L (137-145); White Blood Cell Count 10.7 X10^3/uL (4.5-11.0)
--- NOTE | 2024-10-11 12:14 | ED.GENADULT ---
HPI - General Adult General Chief complaint: Vaginal Bleeding Stated complaint: PID worsening Time Seen by Provider: 10/11/24 11:49 Source: patient Mode of arrival: Ambulatory History of Present Illness HPI narrative: 24-year-old woman with a history of a craniopharyngioma removed in 2021 and follows with the [facility] with complications including panhypopituitarism, diabetes insipidus, who was seen in the emergency department on the with complaints of pelvic pain since Mirena placed in early August. Diagnosed with PID and In consultation with OBGYN, she was given 1 g of IV ceftriaxone and was supposed to complete 2 weeks of doxycycline and Flagyl. She was seen the following day at use a women[facility] clinic in [place] and the IUD was removed. She does have another appointment with them scheduled for tomorrow. She notes that the amount of bleeding that she is having seems slightly more today but she has been having heavy bleeding since mid August with no evidence of anemia and no significant microcytosis. She has not complaining of fevers. She does not believe that the nausea is related to antibiotics. Through all of the she has not had any adrenal boost hydrocortisone dosing Related Data Home Medications Medication Instructions Recorded Confirmed celecoxib 200 mg capsule 200 mg PO BID 09/21/24 09/21/24 desmopressin 10 mcg/spray (0.1 mL) 1 spray intranasal Q6-8H 09/21/24 09/21/24 nasal spray (non-refrigerated) estradiol 1 mg tablet 1 mg PO DAILY 09/21/24 09/21/24 hydrocortisone 10 mg tablet See Rx Instructions .Route .COMPLEX 09/21/24 09/21/24 levothyroxine 75 mcg tablet 75 mcg PO DAILY 09/21/24 09/21/24 ondansetron 4 mg disintegrating 4 - 8 mg PO Q8H PRN nausea/vomiting 09/21/24 09/21/24 tablet syringe with needle 3 mL 21 gauge 09/21/24 09/21/24 x 1 1/2 (BD Luer-Perry Syringe) Previous Rx's Medication Instructions Recorded tramadol 50 mg tablet 50 mg PO Q6H PRN pain #10 tabs 09/21/24 doxycycline hyclate 100 mg capsule 100 mg PO BID 14 days #28 caps 10/08/24 metronidazole 500 mg tablet 500 mg PO BID 14 days #28 tabs 10/08/24 ondansetron 4 mg disintegrating 4 mg PO Q8H PRN nausea and 10/11/24 tablet vomiting #20 tabs oxycodone-acetaminophen 5 mg-325 1 tab PO Q6H PRN pain #14 tabs 10/11/24 mg tablet Allergies Allergy/AdvReac Type Severity Reaction Status Date / Time No Known Drug Allergies Allergy Verified 09/21/24 06:41 Review of Systems Review of Systems Narrative: Pertinent positive and negative findings as per HPI Patient History Medical History (Updated 10/11/24 @ 14:09 by Marcela Howell MD) Craniopharyngioma in adult Panhypopituitarism Social History Smoking Status: Never smoker Smoking Status: Never smoker alcohol intake frequency: holidays/special occasions only Substance Use Type: does not use Exam Initial Vital Signs Initial Vital Signs: Vital Signs Temperature 97.8 F 10/11/24 11:06 Pulse Rate 101 H 10/11/24 11:06 Respiratory Rate 20 10/11/24 11:06 Blood Pressure 161/101 H 10/11/24 11:06 Pulse Oximetry 99 10/11/24 11:06 Oxygen Delivery Method Room Air 10/11/24 11:06 General: Patient appears pale, weak and generally unwell HEENT: Moist mucous membranes, normal sclera with reactive pupils, Respiratory: Lungs are clear to auscultation, no wheezing no rales no rhonchi. Full and symmetrical air movement Cardiac: Regular rate and rhythm no murmurs no bruits Abdomen: Soft, mild tenderness in the lower quadrants without rebound or guarding, no flank pain Skin: Warm and dry, no rashes Neurologic: Grossly neurologically intact with no obvious asymmetries or abnormalities Extremities: No trauma, well perfused Psych: Cooperative, appropriate insight and affect Genital: She is having moderate amount of red blood, current pad is saturated there is a small clot. No significant odor and I am unable to detect any discharge beyond the blood Course Orders Ordered: ED Orders 10/11/24 11:30 Basic Metabolic Panel Stat Complete Blood Count AUTO DIFF Stat Type and Screen Stat 10/11/24 14:12 UA Complete [Urinalysis and Microscopic] Stat Urine Culture Stat Hydromorphone HCl (Hydromorphone 0.5 Mg Inj) 0.5 mg IV Q15MIN PRN PRN Reason: Pain, Last Admin: 10/11/24 14:42 Dose: 0.5 mg Documented By: Admin: 10/11/24 13:10 Dose: 0.5 mg Documented By: JENNIFER Discontinued Medications Hydrocortisone (Hydrocortisone 100 Mg/2 Ml Vial) 100 mg IV NOW ONE Stop: 10/11/24 14:11 Last Admin: 10/11/24 14:42 Dose: 100 mg Documented By: ILIANA Sodium Chloride (Normal Saline 0.9%) 1,000 mls @ 1,000 mls/hr IV BOLUS ONE Stop: 10/11/24 13:22 Last Infusion: 10/11/24 14:33 Dose: Infused Documented By: Admin: 10/11/24 13:07 Dose: 1,000 mls/hr Documented By: JENNIFER Ondansetron HCl (Ondansetron 4 Mg/2 Ml Inj) 4 mg IV NOW ONE Stop: 10/11/24 12:24 Last Admin: 10/11/24 13:07 Dose: 4 mg Documented By: JENNIFER Vital Signs Vital signs: Vital Signs - 8 hr 10/11/24 11:06 10/11/24 11:23 10/11/24 11:24 Temperature 97.8 F Pulse Rate 101 H 96 H Respiratory Rate 20 Blood Pressure 161/101 H 154/115 H Pulse Oximetry 99 98 Oxygen Delivery Method Room Air 10/11/24 11:24 10/11/24 11:30 10/11/24 11:35 Temperature Pulse Rate 94 H 97 H Respiratory Rate 15 17 Blood Pressure 154/99 H Pulse Oximetry 98 97 Oxygen Delivery Method 10/11/24 11:35 10/11/24 12:00 10/11/24 12:00 Temperature Pulse Rate 91 H 84 Respiratory Rate 18 18 Blood Pressure 137/90 Pulse Oximetry 98 97 Oxygen Delivery Method 10/11/24 12:30 10/11/24 12:30 10/11/24 13:00 Temperature Pulse Rate 85 Respiratory Rate 12 Blood Pressure 144/94 H 152/96 H Pulse Oximetry 96 Oxygen Delivery Method 10/11/24 13:00 10/11/24 13:30 10/11/24 13:30 Temperature Pulse Rate 99 H 79 Respiratory Rate 20 11 L Blood Pressure 133/84 Pulse Oximetry 99 97 Oxygen Delivery Method 10/11/24 14:00 10/11/24 14:00 10/11/24 14:18 Temperature Pulse Rate 94 H 93 H Respiratory Rate 16 13 Blood Pressure 142/88 H Pulse Oximetry 100 100 Oxygen Delivery Method 10/11/24 14:18 10/11/24 14:30 10/11/24 14:30 Temperature Pulse Rate 91 H Respiratory Rate 22 Blood Pressure 153/100 H 148/99 H Pulse Oximetry 100 Oxygen Delivery Method Room Air Medical Decision Making Lab Data 10/11/24 11:30 10/11/24 11:30 Labs: Lab Results 10/11/24 10/11/24 Range/Units 11:30 14:12 WBC 10.7 (4.5-11.0) X10^3/uL RBC 4.37 (4.0-5.2) X10^6/uL Hgb 13.0 (12.0-16.0) g/dL Hct 38.7 (36-46) % MCV 88.4 (80-100) fL MCH 29.8 (26-34) PG MCHC 33.7 (30-36) % RDW 13.0 (11.6-14.8) % Plt Count 256 (150-400) X10^3/uL Neut % (Auto) 60.4 (50-75) % Lymph % (Auto) 31.2 (25-40) % Callahan % (Auto) 4.9 (3-14) % Eos % (Auto) 3.0 (2-4) % Baso % (Auto) 0.5 (0-2) % Neut # (Auto) 6500 (5671-1577) /uL Lymph # (Auto) 3300 (8507-9415) /uL Callahan # (Auto) 500 (0-900) /uL Eos # (Auto) 300 (0-450) /uL Baso # (Auto) 100 (0-100) /uL Sodium 138 (137-145) mmol/L Potassium 3.5 (3.4-5.1) mmol/L Chloride 103 (98-107) mmol/L Carbon Dioxide 26 (22-32) mmol/L BUN 17 (7-17) mg/dL Creatinine 0.77 (0.52-1.04) mg/dL Estimated GFR > 60 (>60) mL/min BUN/Creatinine Ratio 22.1 H (6-22) Glucose 91 (70-100) mg/dL Calcium 9.5 (8.4-10.2) mg/dL Urine Color Red Urine Appearance Turbid Urine pH 6.5 (4.5-8.0) Ur Specific [place] 1.015 (1.000-1.035) Urine Protein Negative (Negative) Urine Glucose (UA) Negative (Negative) g/dL Urine Ketones Negative (NEGATIVE) Urine Occult Blood 3+ H (Negative) Urine Nitrate Positive H (Negative) Urine Bilirubin Negative (NEGATIVE) Urine Urobilinogen 0.2 (0.2) E.U./dL Ur Leukocyte Esterase Negative (NEGATIVE) Urine RBC >100/hpf H (0-5/HPF) Urine WBC None seen (0-5/HPF) Ur Squamous Epith Cells None seen (0-5/HPF) Urine Bacteria Few (2-10) H (None) Ur Culture Indicated? Specimen cultured Vol Urine Centrifuged 10ml (spun) Blood Type O Positive Antibody Screen Negative Point of Care Testing Test Results Negative Urine Dip Bedside Urine Glucose Negative Bedside Urine Bilirubin - Negative Bedside Urine Ketone - Negative Urine Specific [place] 1.015 Bedside Urine Occult Blood +++ Bedside Urine pH 6.0 Bedside Urine Protein - Negative Bedside Urine Urobilinogen - Negative Bedside Urine Nitrite - Negative Bedside Urine Leukocytes +/- 15 Esterase Point of care testing: Point of Care Testing Test Results Negative Urine Dip Bedside Urine Glucose Negative Bedside Urine Bilirubin - Negative Bedside Urine Ketone - Negative Urine Specific [place] 1.015 Bedside Urine Occult Blood +++ Bedside Urine pH 6.0 Bedside Urine Protein - Negative Bedside Urine Urobilinogen - Negative Bedside Urine Nitrite - Negative Bedside Urine Leukocytes +/- 15 Esterase [facility] Narrative Medical decision making narrative: CC: Vaginal bleeding Complicating co-morbidities: Recently had IUD placed, diagnosed with PID is currently on metronidazole and doxycycline, IUD was removed, still having vaginal bleeding and feeling unwell Data collected from: patient Medical records reviewed: Majority of medical history is from the patient Differential considered: Anemia, PID, sepsis, Carlos-george- Chapin, Exam documented above, pertinent findings include: Patient of appears to feel unwell however exam itself is fairly benign, she does not have an acute abdomen or dramatic pelvic pain Lab Test results independently reviewed as above. Pertinent findings: CBC shows a white count of 10.7, H&H of 13 and 38.7 with an MCV at 88. Platelets are normal Chemistries show normal electrolytes. Glucose at 91 Urinalysis is consistent with vaginal bleeding, I do not suspect a UTI at this time Treatments: Fluids, Zofran, IV Dilaudid Discussion: 24-year-old woman with panhypopituitarism, recently placed IUD for vaginal bleeding without significant anemia but with significant persistent cramping, currently being treated for pelvic inflammatory disease presents complaining of increasing vaginal bleeding. There was no sign of sepsis, worsening PID, her IUD was removed on the by her provider at the [facility] women's clinic. She has not appointment with this provider tomorrow. She is feeling better after fluids. We will ask her to continue her doxycycline and Flagyl, she will be given a prescription for Zofran. Apparently was given narcotic prescription by her nurse practitioner however prescription has not gone through, we will give her a written prescription to fill. We will ask her to keep her appointment with her primary provider tomorrow and return with any worsening symptoms Discharge Plan Departure Patient Disposition: Home Clinical Impression: Acute pelvic inflammatory disease (PID), Vaginal bleeding Activity Restrictions/Additional Instructions: Thank you for coming in today, I am sorry you are still feeling unwell Your blood work was quite reassuring. There was no evidence of infection, severe anemia or any type of anemia, kidney function and electrolytes are all appropriate. In the ER you were given 1 L of fluid, Zofran, Dilaudid. I also gave you 100 mg of hydrocortisone to help adrenal function. I printed out blood work from today's visit and blood work and imaging studies from the for you to share with your primary care doctor Please continue your antibiotics, keep your appointment with your primary doctor tomorrow. I have given you written prescription for Percocet to use for pain control, this will cause constipation. use stool softeners and extra fiber in your diet as tolerated. I have also given you a prescription for Zofran to help with nausea. If you feel that you are getting worse, please feel free to return to the ER Prescriptions: New oxycodone-acetaminophen 5-325 mg tablet 1 tab PO Q6H PRN (Reason: pain) Qty: 14 0RF ondansetron 4 mg tablet,disintegrating 4 mg PO Q8H PRN (Reason: nausea and vomiting) Qty: 20 0RF No Action desmopressin 10 mcg/spray (0.1 mL) spray with pump 1 spray intranasal Q6-8H levothyroxine 75 mcg tablet 75 mcg PO DAILY estradiol 1 mg tablet 1 mg PO DAILY hydrocortisone 10 mg tablet See Rx Instructions .ROUTE .COMPLEX Rx Instructions: Take 2 tablets by mouth every morning and 1 tablet every afternoon ondansetron 4 mg tablet,disintegrating 4 - 8 mg PO Q8H PRN (Reason: nausea/vomiting) (DME) syringe with needle [BD Luer-Perry Syringe] 3 mL 21 gauge x 1 1/2 syringe 1 syringe MISCELLANEOUS celecoxib 200 mg capsule 200 mg PO BID tramadol 50 mg tablet 50 mg PO Q6H PRN (Reason: pain) Qty: 10 0RF doxycycline hyclate 100 mg capsule 100 mg PO BID 14 Days Qty: 28 0RF metronidazole 500 mg tablet 500 mg PO BID 14 Days Qty: 28 0RF Stand Alone Forms: Patient Portal/API/Survey
[2024-10-11] MEDS: ONDANSETRON 4 MG/2 ML INJ IV (13:07)
[2024-10-11] MEDS: SODIUM CHLORIDE 0.9% 1,000 ML 1000 ML IV (13:07)
[2024-10-11] MEDS: HYDROMORPHONE 0.5 MG INJ IV ×2 (13:10→14:42)
--- NOTE | 2024-10-11 13:14 | PC.NURSE ---
Pt requested a lazaro pad, I asked pt's [id number] if she was able to assist pt with changing her pad. [id number] walked out of room and appeared offended at my request and stated she would not assist because pt needed privacy. certified solid waste facility operator aware. certified solid waste facility operator then assisted with pt medication administration and stated [id number] made her feel uncomfortable in the room and was taking notes on her phone and then looking up and laughing at battery charger.
--- NOTE | 2024-10-11 14:21 | PC.NURSE ---
RN assisted pt to commode, while on the commode pt passed multiple medium sized blot clots. Pt feels dizzy at this time. Pt assisted back to bed and vitals obtained. VSS, Dr. Howell updated. Continuing to monitor hemodynamic stability.
[2024-10-11 14:34] LABS: Bilirubin Urine UA NEGATIVE (NEGATIVE); Glucose Urine UA NEGATIVE (Negative); Ketones Urine UA NEGATIVE (NEGATIVE); Leukocyte Esterase Urine UA NEGATIVE (NEGATIVE); Nitrite Urine UA POSITIVE (Negative); Occult Blood Urine UA 3+ (Negative); Protein Urine UA NEGATIVE (Negative); Specific Gravity Urine UA 1.015 (1.000-1.035); Urobilinogen Urine UA 0.2 E.U./dL (0.2)
[2024-10-11 14:37] LABS: Appearance Urine UA TURBID; Color Urine UA RED; pH Urine UA 6.5 (4.5-8.0)
[2024-10-11] MEDS: HYDROCORTISONE 100 MG/2 ML VIAL IV (14:42)
[2024-10-11 14:47] LABS: Urine Volume 10mL (spun)
[2024-10-11 14:48] LABS: Bacteria Urine Few (2-10); RBC Urine >100/HPF (0-5/HPF); Squamous Epithelial Cell Urine None Seen (0-5/HPF); WBC Urine None Seen (0-5/HPF)
[2024-10-11 14:49] LABS: Culture Indicated Urine Specimen Cultured
== END 2024-10-11 15:35 | disposition home or self-care (01) ==
PROVIDERS: Emergency Provider Emergency Medicine
DX: N73.9 Female pelvic inflammatory disease, unspecified (principal); N93.9 Abnormal uterine and vaginal bleeding, unspecified
CPT/HCPCS: 36415; 80048; 81001; 81003; 81025; 85025; 86850; 86900; 86901; 87086; 96361; 96374; 96375; 96376; 99284; J1171; J1720; J2405

== ENCOUNTER → 2025-02-03 18:19 | Outpatient (CLI) | payer OTHER, SELFPAY ==
--- NOTE | 2025-02-03 18:23 | DI.RAD.S_ITS ---
PROCEDURE: XR ANKLE RT MIN 3V INDICATIONS: Right foot pain TECHNIQUE: 3 views of the ankle were acquired. COMPARISON: [facility], CR, XR FOOT RT MIN 3V, 02/03/2025, 18:21. FINDINGS: Bones: No fractures or dislocations. Ankle mortise is normally aligned. There is a fusiform region of increased radiodensity involving the inner table of the medial aspect of the distal fibular metadiaphyseal junction above the ankle joint level. This has a small region of central lucency that is indistinctly marginated. Chronicity is uncertain by appearance. Soft tissues: No tibiotalar joint effusion. Achilles tendon appears normal. IMPRESSION: No acute bony abnormality or significant effusion. Medial fusiform region of increased radiodensity at the distal fibular metadiaphyseal junction as discussed. This shows a indistinctly marginated central lucency. Please correlate for prior trauma to this area. If unusual symptomatology is present follow-up by nuclear medicine bone scan or contrast-enhanced MR scanning may become necessary. Dictated by: Erick Ramires M.D. on 02/04/2025 at 9:43 Approved by: Erick Ramires M.D. on 02/04/2025 at 9:43
--- NOTE | 2025-02-03 18:23 | DI.RAD.S_ITS ---
PROCEDURE: XR FOOT RT MIN 3V INDICATIONS: Right foot pain TECHNIQUE: 3 views of the foot were acquired. COMPARISON: [facility], CR, XR ANKLE RT MIN 3V, 02/03/2025, 18:21. FINDINGS: Bones: No fractures or dislocations. No suspicious bony lesions. Soft tissues: No tibiotalar joint effusion. Achilles tendon appears normal. IMPRESSION: No acute bony abnormality. Dictated by: Erick Ramires M.D. on 02/04/2025 at 9:42 Approved by: Erick Ramires M.D. on 02/04/2025 at 9:43
== END ==
PROVIDERS: Referring Provider Nurse Practitioner Family; Visit Provider Nurse Practitioner Family
DX: S96.911A Strain of unspecified muscle and tendon at ankle and foot level, right foot, initial encounter (principal); R93.6 Abnormal findings on diagnostic imaging of limbs
CPT/HCPCS: 73610; 73630